=== PATIENT | male | born 1985 | race Caucasian/White ===

== ENCOUNTER 2017-09-03 11:19 | Emergency (ER) | payer MEDICAID ==
[~2017-09-03 11:19] MED LIST: ACHD5005 PO; CEPH-507 PO; DCS100C PO; DIVA500T PO; GBPN600T PO; HYDR-34 PO; HYOS0.1217 PO; MELO-195 PO; METH4TAB PO; ONDA-42 SL; OXYC-12 PO; OXYC-197 PO
--- OUTSIDE RECORDS SUMMARY | 2017-09-03 11:28 | XMS REPORT ---
Author Author CARI RYAN Organization [facility] Address [address] [place] [address] Care Team Providers Care Tourist Information Officer Name Role Phone CARI RYAN Unavailable PROBLEMS Type Condition ICD9-CM Code AGE09-KR Code Onset Dates Condition Status SNOMED Code Problem Follow-up examination following completed treatment with high-risk medications, not elsewhere classified V67.51 Active 556696758 Problem Acute midline low back pain with right-sided sciatica M54.41 Active 046262536 Problem Anxiety state, unspecified 300.00 Active 716696383 Problem Displacement of lumbar intervertebral disc without myelopathy 722.10 Active 11682174 Problem Abnormal involuntary movements 781.0 Active 215192321 Problem Depressive disorder, not elsewhere classified 311 Active 65536004 Problem Unspecified hereditary and idiopathic peripheral neuropathy 356.9 Active 191753835 ALLERGIES Substance Reaction Event Type Date Status Codeine Sulfate nausea and vomiting Drug Allergy Nov, Active Hydrocodone-acetaminophen 5-325 Mg Tablet nausea Non Drug Allergy Nov, Active ENCOUNTERS Encounter Location Date Diagnosis [facility] [id number] [place] [address] Jan, [facility] [id number] [place] [address] 55271- 8942 Jan, [facility] [id number] [place] [address] 6[address]16 -6776 Jan, Acute midline low back pain with right-sided sciatica M54.41 [facility] [address] [address] Dec, Viral gastroenteritis A08.4 [facility] [address] [place] [id number] [place] [address] Nov, Gastroenteritis and colitis, viral A08.4 [facility] [address] [address] Nov, Viral gastroenteritis A08.4 [facility] [id number] [place] [address]74 [address]23 Nov, Gastroenteritis and colitis, viral A08.4 [facility] [id number] [place] [address]7256 Aug, Viral gastroenteritis A08.4 [facility] [id number] [place] [address]72 [address]015 Mar, Other viral agents as the cause of diseases classified elsewhere B97.89 and Acute upper respiratory infection, unspecified J06.9 [facility] [id number] [place] [address]254 Dec, Body aches R52 ; Sore throat J02.9 and Gastroenteritis K52.9 [facility] [id number] [place] [address] 46583- 4544 May, [facility] [id number] [place] [address] 07787- 1050 May, [facility] [id number] [place] [address] 75191- 5569 Nov, [facility] [id number] [place] [address] 58201- 6785 Nov, [facility] [id number] [place] [address] 67876- 3949 Jul, [facility] [id number] [place] [address] 18944- 5318 Jul, [facility] [id number] [place] [address] 37105- 4220 Jul, [facility] [id number] [place] [address] 57471- 5199 Jul, [facility] [id number] [place] [address]80- 3020 June, [facility] [address] [id number] [place] [address] 7962 June, [facility] [place] [facility] [address] [id number] [place] [address]- 6994 June, [facility] [place] [facility] [address] [id number] [place] [address]- 8407 June, [facility] [place] [facility] [address] [id number] [place] [address]- 7548 May, [facility] [place] [facility] [address] [id number] [place] [address]- 7980 May, [facility] [place] [facility] [address] [id number] [place] [address]- 0730 Apr, [facility] [place] [facility] [address] [id number] [place] [address]- 7105 Apr, [facility] [place] [facility] [address] [id number] [place] [address]- 8626 Apr, [facility] [place] [facility] [address] [id number] [place] [address]- 5713 Mar, [facility] [place] [facility] [address] [id number] [place] [address]- 2153 Mar, [facility] [place] [facility] [address] [id number] [place] [address]- 5988 Feb, [facility] [place] [facility] [address] [id number] [place] [address]- 2086 Feb, [facility] [place] [facility] [address] [id number] [place] [address]- 9082 Dec, [facility] [place] [facility] [address] [id number] [place] [address]- 6327 Dec, [facility] [place] [facility] [address] [id number] [place] [address]- 1730 Dec, [facility] [place] [facility] [address] [id number] [place] [address]- 4617 Dec, [facility] [place] [facility] [address] [id number] [place] [address]- 9305 Dec, [facility] [place] [facility] [address] [id number] [place] [address]- 1626 Dec, [facility] [place] [facility] [address] [id number] [place] [address]- 6388 Dec, [facility] [place] [facility] [address] [id number] [place] [address]- 1471 Dec, [facility] [place] [facility] [address] [id number] [place] [address]- 3166 Nov, [facility] [place] [facility] [address] [id number] [place] [address]- 3591 Nov, [facility] [place] [facility] [address] [id number] [place] [address]- 9915 Nov, [facility] [place] [facility] [address] [id number] [place] [address]- 2040 Nov, [facility] [place] [facility] [address] [id number] [place] [address]- 0213 Mar, [facility] [place] [facility] [address] [id number] [place] [address]- 6142 Feb, [facility] [place] [facility] [address] [id number] [place] [address]- 7327 Feb, [facility] [place] [facility] [address] [id number] [place] [address]- 4692 Feb, [facility] [place] [facility] [address] [id number] [place] [address]- 1039 Feb, [facility] [place] [facility] [address] [id number] [place] [address]- 9360 Feb, [facility] [place] [facility] [address] [id number] [place] [address]- 4263 Feb, [facility] [place] [facility] [address] [id number] [place] [address]- 3764 Jan, [facility] [place] [facility] [address] [id number] [place] [address]- 7550 Jan, [facility] [place] [facility] [address] [facility] [id number] [place] [address]- 6700 Jan, [facility] [place] [facility] [address] [id number] [place] [address]- 5994 Jan, [facility] [place] [facility] [address] [id number] [place] [address]- 2583 Dec, [facility] [place] [facility] [address] [id number] [place] [address]- 9514 Dec, [facility] [place] [facility] [address] [id number] [place] [address]- 4204 Dec, [facility] [place] [facility] [address] [id number] [place] [address]- 1513 Dec, [facility] [place] [facility] [address] [id number] [place] [address]- 7032 Dec, [facility] [place] [facility] [address] [facility] [id number] [place] [address]- 9251 Dec, [facility] [place] [facility] [address] [id number], [place] [address]- 9350 Dec, [facility] [place] [facility] [address] [id number], [place] [address]- 5187 Dec, [facility] [place] [facility] [address] [id number] [place] [address]- 4981 Dec, [facility] [place] [facility] [address] [id number], [place] [address]- 6636 Dec, [facility] [place] [facility] [address] [facility] [id number] [place] [address]- 2516 Oct, [facility] [place] [facility] [address] [facility] [id number] [place] [address]- 1084 Nov, [facility] [address] [facility] [id number], [place] [address]- 1657 Nov, [facility] [address] [facility] [id number], [place] [address]- 8103 Nov, [facility] [address] [facility] [id number], [place] [address]- 3449 Mar, IMMUNIZATIONS No Known Immunizations SOCIAL HISTORY Never Assessed REASON FOR VISIT Diarrhea started Wednesday, seen on Wednesday and [facility] VITAL SIGNS Height 69 in 2016-11-18 Weight 269.4 lbs 2016-11-18 Temperature 98.3 degrees Fahrenheit 2016-11-18 Heart Rate 80 bpm 2016-11-18 Respiratory Rate 18 2016-11-18 BMI 39.78 kg/m2 2016-11-18 Blood pressure systolic 100 mmHg 2016-11-18 Blood pressure diastolic 70 mmHg 2016-11-18 MEDICATIONS Medication Instructions Dosage Frequency Start Date End Date Duration Status Zofran 4 MG Orally 3 times a day 1 tablet 8h Nov, Active RESULTS No Results PROCEDURES No Known procedures INSTRUCTIONS MEDICATIONS ADMINISTERED No Known Medications MEDICAL (GENERAL) HISTORY Type Description Date Medical History degenerative disc disease Medical History spondolysis Medical History history of herniated discs
--- OUTSIDE RECORDS SUMMARY | 2017-09-03 11:28 | XMS REPORT ---
Author Author OLSONMICHAEL Wilson Organization [facility] Address [address] [place] [address] Care Team Providers Care Portainer Operator Name Role Phone MICHAEL OLSON Unavailable PROBLEMS Type Condition ICD9-CM Code [id number] Code Onset Dates Condition Status SNOMED Code Problem Follow-up examination following completed treatment with high-risk medications, not elsewhere classified V67.51 Active 939317792 Problem Acute midline low back pain with right-sided sciatica M54.41 Active 289212952 Problem Anxiety state, unspecified 300.00 Active 419769676 Problem Displacement of lumbar intervertebral disc without myelopathy 722.10 Active 83977149 Problem Abnormal involuntary movements 781.0 Active 841647947 Problem Depressive disorder, not elsewhere classified 311 Active 57071226 Problem Unspecified hereditary and idiopathic peripheral neuropathy 356.9 Active 442082964 ALLERGIES Substance Reaction Event Type Date Status Codeine Sulfate nausea and vomiting Drug Allergy Jan, Active Hydrocodone-acetaminophen 5-325 Mg Tablet nausea Non Drug Allergy Jan, Active ENCOUNTERS Encounter Location Date Diagnosis [facility] [id number] [place] [address] 49290- 9598 Jan, [facility] [id number] [place] [address] 79972- 8032 Jan, [facility] [id number] [place] [address] 18038 -7266 Jan, Acute midline low back pain with right-sided sciatica M54.41 [facility] [address] [address] Dec, Viral gastroenteritis A08.4 [facility] [id number] [place] [address] 44753 -7771 Nov, Gastroenteritis and colitis, viral A08.4 [facility] [address] [address] Nov, Viral gastroenteritis A08.4 [facility] [address] [address] Nov, Gastroenteritis and colitis, viral A08.4 [facility] [address] [address] Aug, Viral gastroenteritis A08.4 [facility] [address] [address] Mar, Other viral agents as the cause of diseases classified elsewhere B97.89 and Acute upper respiratory infection, unspecified J06.9 [facility] [address] [address] Dec, Body aches R52 ; Sore throat J02.9 and Gastroenteritis K52.9 [facility] [id number] [address]- 4131 May, [facility] [id number] [place] [address] 05472- 6072 May, [facility] [id number] [place] [address] 79357- 5129 Nov, [facility] [address] [address]- 7416 Nov, [facility] [address] [address]- 1874 Jul, [facility] [address] [address]- 3374 Jul, [facility] [id number] [place] [address] 09956- 8178 Jul, [facility] [address] [address]- 9750 Jul, [facility] [id number] [place] [address] [place] [address]- 0294 June, [facility] [address] [id number] [place] [address]- 5383 June, [facility] [place] [facility] [address] [id number] [place] [address]- 7305 June, [facility] [place] [facility] [address] [id number] [place] [address]- 2742 June, [facility] [place] [facility] [address] [id number] [place] [address]- 4488 May, [facility] [place] [facility] [address] [id number] [place] [address]- 5983 May, [facility] [place] [facility] [address] [id number] [place] [address]- 5379 Apr, [facility] [address] [id number] [place] [address]- 6360 Apr, [facility] [place] [facility] [address] [id number] [place] [address]- 0244 Apr, [facility] [place] [facility] [address] [id number] [place] [address]- 4787 Mar, [facility] [place] [facility] [address] [id number] [place] [address]- 1689 Mar, [facility] [place] [facility] [address] [id number] [place] [address]- 9600 Feb, [facility] [place] [facility] [address] [id number] [place] [address]- 3622 Feb, [facility] [place] [facility] [address] [id number] [place] [address]- 8063 Dec, [facility] [place] [facility] [address] [id number] [place] [address]- 3526 Dec, [facility] [place] [facility] [address] [id number] [place] [address]- 1903 Dec, [facility] [place] [facility] [address] [id number] [place] [address]- 8003 Dec, [facility] [place] [facility] [address] [id number] [place] [address]- 3628 Dec, [facility] [place] [facility] [address] [id number] [place] [address]- 5815 Dec, [facility] [place] [facility] [address] [id number] [place] [address]- 9626 Dec, [facility] [place] [facility] [address] [id number] [place] [address]- 6580 Dec, [facility] [place] [facility] [address] [id number] [place] [address]- 0682 Nov, [facility] [place] [facility] [address] [id number] [place] [address]- 2648 Nov, [facility] [place] [facility] [address] [id number] [place] [address]- 4524 Nov, [facility] [place] [facility] [address] [id number] [place] [address]- 1854 Nov, [facility] [place] [facility] [address] [id number] [place] [address]- 4264 Mar, [facility] [place] [facility] [address] [id number] [place] [address]- 0960 Feb, [facility] [place] [facility] [address] [id number] [place] [address]- 1201 Feb, [facility] [place] [facility] [address] [id number] [place] [address]- 9386 Feb, [facility] [place] [facility] [address] [id number] [place] [address]- 7560 Feb, [facility] [place] [facility] [address] [id number] [place] [address]- 3781 Feb, [facility] [place] [facility] [address] [id number] [place] [address]- 2883 Feb, [facility] [place] [facility] [address] [id number] [place] [address]- 7556 Jan, [facility] [place] [facility] [address] [id number] [place] Jan, [facility] [place] [facility] [address] [id number] [place] [address]- 1556 Jan, [facility] [place] [facility] [address] [id number] [place] [address]- 1148 Jan, [facility] [place] [facility] [address] [id number] [place] [address]- 9944 Dec, [facility] [place] [facility] [address] [id number] [place] [address]- 1927 Dec, [facility] [place] [facility] [address] [id number] [place] [address]- 0542 Dec, [facility] [place] [facility] [address] [id number] [place] [address]- 0257 Dec, [facility] [place] [facility] [address] [id number] [place] [address]- 8124 Dec, [facility] [place] [facility] [address] [id number] [place] [address]- 4306 Dec, [facility] [place] [facility] [address] [id number] [place] [address]- 4824 Dec, [facility] [place] [facility] [address] [id number] [place] [address]- 7255 Dec, [facility] [place] [facility] [address] [id number] [place] [address]- 0245 Dec, [facility] [place] [facility] [address] [id number] [place] [address]- 9835 Dec, [facility] [place] [facility] [address] [id number] [place] [address]- 8475 Oct, [facility] [place] [facility] [address] [facility] [id number] [place] [address]- 3917 Nov, [facility] [address] [facility] [id number] [address]- 0132 Nov, [facility] [address] [facility] [id number] [address]- 7396 Nov, [facility] [address] [facility] [id number] [address]- 2700 Mar, IMMUNIZATIONS No Known Immunizations SOCIAL HISTORY Never Assessed REASON FOR VISIT lower back pain started a couple days ago JStrasserRN PLAN OF CARE Activity Details Follow Up prn Reason: VITAL SIGNS Height 69 in 2017-01-18 Weight 267.0 lbs 2017-01-18 Temperature 97.9 degrees Fahrenheit 2017-01-18 Heart Rate 96 bpm 2017-01-18 Respiratory Rate 22 2017-01-18 BMI 39.42 kg/m2 2017-01-18 Blood pressure systolic 130 mmHg 2017-01-18 Blood pressure diastolic 84 mmHg 2017-01-18 MEDICATIONS Medication Instructions Dosage Frequency Start Date End Date Duration Status Tylenol 325 MG Orally every 6 hrs 2 tablets as needed 6h Active Ibuprofen 800 MG Orally Three times a day 1 tablet with food or milk as needed 8h Jan, Feb, 30 days Active PredniSONE 10 mg Orally Once a day 6 tabs x 4 days, 5 tabs x 4 days, 4 tabs x 4 days, 3 tabs x 4 days, 2 tabs x 4 days, then 1 tab x 4 days. 24h Jan, Jan, 24 days Active Baclofen Not-Taking Zofran 4 MG Orally 3 times a day 1 tablet 8h Nov, Not-Taking Tizanidine HCl 4 MG Orally Three times a day 1 tablet as needed 8h Jan, Jan, 14 days Active Meloxicam Not-Taking Oxycodone-Acetaminophen 5-325 mg 1 Tablets by Oral route 3 times per day PRN Must keep appointment on 08-11-13 Jul, Not-Taking Gabapentin 300 mg 1 capsule by Oral route 3 times per day Dec, Not-Taking RESULTS No Results PROCEDURES No Known procedures INSTRUCTIONS MEDICATIONS ADMINISTERED No Known Medications MEDICAL (GENERAL) HISTORY Type Description Date Medical History degenerative disc disease Medical History spondolysis Medical History history of herniated discs
--- OUTSIDE RECORDS SUMMARY | 2017-09-03 11:28 | XMS REPORT ---
Author Author JYOTI ABRAMS Organization [facility] Address [address] [place] [address] Care Team Providers Care Soft Metals Hand Engraver Name Role Phone ABRAMSCASSYJYOTI Unavailable PROBLEMS Type Condition ICD9-CM Code RKN83-AZ Code Onset Dates Condition Status SNOMED Code Problem Follow-up examination following completed treatment with high-risk medications, not elsewhere classified V67.51 Active 934936751 Problem Acute midline low back pain with right-sided sciatica M54.41 Active 793018060 Problem Anxiety state, unspecified 300.00 Active 012682317 Problem Displacement of lumbar intervertebral disc without myelopathy 722.10 Active 34524469 Problem Abnormal involuntary movements 781.0 Active 964673589 Problem Depressive disorder, not elsewhere classified 311 Active 98108759 Problem Unspecified hereditary and idiopathic peripheral neuropathy 356.9 Active 596072751 ALLERGIES Substance Reaction Event Type Date Status Codeine Sulfate nausea and vomiting Drug Allergy Dec, Active Hydrocodone-acetaminophen 5-325 Mg Tablet nausea Non Drug Allergy Dec, Active ENCOUNTERS Encounter Location Date Diagnosis [facility] [id number] [place] [address] 100[address] Jan, [facility] [id number] [place] [address]6579[address] 3761 Jan, [facility] [id number] [place] [address] Jan, Acute midline low back pain with right-sided sciatica M54.41 [facility] [id number] [place] [address]3964 [address] Dec, Viral gastroenteritis A08.4 [facility] [id number] [place] [address]36 [address] Nov, Gastroenteritis and colitis, viral A08.4 [facility] [address] [address] Nov, Viral gastroenteritis A08.4 [facility] [id number] [place] [address] Nov, Gastroenteritis and colitis, viral A08.4 [facility] [address] [address] Aug, Viral gastroenteritis A08.4 [facility] [id number] [place] [address]10 [address] Mar, Other viral agents as the cause of diseases classified elsewhere B97.89 and Acute upper respiratory infection, unspecified J06.9 [facility] [id number] [address] Dec, Body aches R52 ; Sore throat J02.9 and Gastroenteritis K52.9 [facility] [id number] [place] [address] 33406- 6671 May, [facility] [id number] [place] [address] 91083- 2255 May, [facility] [id number] [place] [address] 09477- 4949 Nov, [facility] [address] [address] 98[address] Nov, [facility] [id number] [place] [address] 38546- 7631 Jul, [facility] [id number] [place] [address] 04417- 8946 Jul, [facility] [id number] [place] [address] 08133- 9152 Jul, [facility] [id number] [place] [address] 24902- 7209 Jul, [facility] [id number] [place] [address] June, [facility] [place] [facility] [address] [id number] [place] [address] 7671 June, [facility] [place] [facility] [address] [id number] [place] [address] 8949 June, [facility] [place] [facility] [address] [id number] [place] [address]- 2569 June, [facility] [place] [facility] [address] [id number] [place] [address] 4167 May, [facility] [place] [facility] [address] [id number] [place] [address]- 0476 May, [facility] [place] [facility] [address] [id number] [place] [address]- 8723 Apr, [facility] [place] [facility] [address] [id number] [place] [address]- 1750 Apr, [facility] [place] [facility] [address] [id number] [place] [address]- 6224 Apr, [facility] [place] [facility] [address] [id number] [place] [address]- 4509 Mar, [facility] [place] [facility] [address] [id number] [place] [address]- 3715 Mar, [facility] [place] [facility] [address] [id number] [place] [address] 3507 Feb, [facility] [place] [facility] [address] [id number] [place] [address] 1540 Feb, [facility] [place] [facility] [address] [id number] [place] [address]- 4078 Dec, [facility] [place] [facility] [address] [id number] [place] [address]- 0667 Dec, [facility] [place] [facility] [address] [id number] [place] [address]- 7106 Dec, [facility] [place] [facility] [address] [id number] [place] [address]- 9707 Dec, [facility] [place] [facility] [address] [id number] [place] [address]- 9864 Dec, [facility] [place] [facility] [address] [id number] [place] [address]- 1286 Dec, [facility] [place] [facility] [address] [id number] [place] [address]- 8565 Dec, [facility] [place] [facility] [address] [id number] [place] [address]- 8921 Dec, [facility] [place] [facility] [address] [id number] [place] [address]- 8377 Nov, [facility] [place] [facility] [address] [id number] [place] [address]- 8637 Nov, [facility] [address] [id number] [place] [address]- 6329 Nov, [facility] [place] [facility] [address] [id number] [place] [address]- 6645 Nov, [facility] [place] [facility] [address] [id number] [place] [address]- 7535 Mar, [facility] [place] [facility] [address] [id number] [place] [address]- 3240 Feb, [facility] [place] [facility] [address] [id number] [address] Feb, [facility] [place] [facility] [address] [id number] [place] [address]- 7762 Feb, [facility] [place] [facility] [address] [id number] [place] [address]- 2865 Feb, [facility] [place] [facility] [address] [id number] [address]- 5[address] Feb, [facility] [place] [facility] [address] [id number] [address]- 7037 Feb, [facility] [place] [facility] [address] [id number] [place] [address]- 8246 Jan, [facility] [place] [facility] [address] [id number] [place] [address]- 4867 Jan, [facility] [place] [facility] [address] [id number] [place] [address]- 9840 Jan, [facility] [place] [facility] [address] [id number] [place] [address]- 2783 Jan, [facility] [place] [facility] [address] [id number] [place] [address]- 4881 Dec, [facility] [place] [facility] [address] [id number] [place] [address]- 9971 Dec, [facility] [place] [facility] [address] [id number] [place] [address]- 7468 Dec, [facility] [place] [facility] [address] [id number] [place] [address]- 8235 Dec, [facility] [place] [facility] [address] [id number] [place] [address]- 4766 Dec, [facility] [place] [facility] [address] [id number] [place] [address]- 8358 Dec, [facility] [place] [facility] [address] [id number] [place] [address]- 2733 Dec, [facility] [place] [facility] [address] [id number] [place] [address]- 5819 Dec, [facility] [place] [facility] [address] [id number] [address]- 0498 Dec, [facility] [place] [facility] [address] [id number] [place] [address]- 7423 Dec, [facility] [place] [facility] [address] [id number] [place] [address]- 7479 Oct, [facility] [place] [facility] [address] [id number] [place] [address] [address] Nov, [facility] [address] [id number] [place] [address] 8320 Nov, [facility] [address] [id number] [address] 6720 Nov, [facility] [address] [id number] [place] [address] Mar, IMMUNIZATIONS No Known Immunizations SOCIAL HISTORY Never Assessed REASON FOR VISIT N/D...denies any vomiting. the diarrhea started at 2230 last noc. [email or web address] PLAN OF CARE Activity Details Follow Up prn Reason: VITAL SIGNS Height 69 in 2016-12-21 Weight 267.6 lbs 2016-12-21 Temperature 98.4 degrees Fahrenheit 2016-12-21 Heart Rate 70 bpm 2016-12-21 Respiratory Rate 20 2016-12-21 BMI 39.51 kg/m2 2016-12-21 Blood pressure systolic 120 mmHg 2016-12-21 Blood pressure diastolic 74 mmHg 2016-12-21 MEDICATIONS Unknown Medications RESULTS No Results PROCEDURES No Known procedures INSTRUCTIONS MEDICATIONS ADMINISTERED No Known Medications MEDICAL (GENERAL) HISTORY Type Description Date Medical History degenerative disc disease Medical History spondolysis Medical History history of herniated discs
--- OUTSIDE RECORDS SUMMARY | 2017-09-03 11:28 | XMS REPORT ---
Author Author OLSONMICHAEL Wilson Organization [facility] Address [address] [place] [address] Care Team Providers Care Electrophysiology Technician Name Role Phone MICHAEL OLSON Unavailable PROBLEMS Type Condition ICD9-CM Code QDV01-XX Code Onset Dates Condition Status SNOMED Code Problem Anxiety state, unspecified 300.00 Active 152036194 Problem Depressive disorder, not elsewhere classified 311 Active 13161221 Problem Abnormal involuntary movements 781.0 Active 376005805 Problem Follow-up examination following completed treatment with high-risk medications, not elsewhere classified V67.51 Active 858915000 Problem Unspecified hereditary and idiopathic peripheral neuropathy 356.9 Active 629679083 Problem Displacement of lumbar intervertebral disc without myelopathy 722.10 Active 69883788 ALLERGIES Substance Reaction Event Type Date Status Wellbutrin Sr 150 Mg Tablet Extended Release Unknown Non Drug Allergy Dec Active Hydrocodone-acetaminophen 5-325 Mg Tablet Unknown Non Drug Allergy Dec, Active SOCIAL HISTORY Never Assessed PLAN OF CARE Activity Details Follow Up prn Reason: VITAL SIGNS Height 71 in 2015-12-29 Weight 243.2 lbs 2015-12-29 Temperature 100.6 degrees Fahrenheit 2015-12-29 Heart Rate 108 bpm 2015-12-29 Respiratory Rate 20 2015-12-29 BMI 33.92 kg/m2 2015-12-29 Blood pressure systolic 122 mmHg 2015-12-29 Blood pressure diastolic 76 mmHg 2015-12-29 MEDICATIONS Medication Instructions Dosage Frequency Start Date End Date Duration Status Ciprofloxacin HCl 500 MG Orally Twice a day 1 tablet 12h Dec, Dec, 05 days Active Metronidazole 500 MG Orally Twice a day 1 tablet 12h Dec, Dec, 05 days Active RESULTS Name Result Date Reference Range INFLUENZA A & B (IN HOUSE) 2015-12-29 INFLUENZA A NEG INFLUENZA B NEG Control + Lot # [id number] Exp date 06/12/2017 STREP A (IN HOUSE) 2015-12-29 STREP A NEG Control + Lot # [id number] Exp date 08/28/2017 PROCEDURES Procedure Date Ordered Result Body Site INFLUENZA ASSAY W/OPTIC Dec 29, 2015 STREP A ASSAY W/OPTIC Dec 29, 2015 IMMUNIZATIONS No Known Immunizations
--- OUTSIDE RECORDS SUMMARY | 2017-09-03 11:28 | XMS REPORT ---
Author Author OLSONMICHAEL Wilson Organization [facility] Address [address] [place] [address] Care Team Providers Care Boiler Attendant Name Role Phone MICHAEL OLSON Unavailable PROBLEMS Type Condition ICD9-CM Code CTG51-MS Code Onset Dates Condition Status SNOMED Code Problem Follow-up examination following completed treatment with high-risk medications, not elsewhere classified V67.51 Active 074903822 Problem Acute midline low back pain with right-sided sciatica M54.41 Active 517375081 Problem Anxiety state, unspecified 300.00 Active 615734987 Problem Displacement of lumbar intervertebral disc without myelopathy 722.10 Active 04587028 Problem Abnormal involuntary movements 781.0 Active 594545425 Problem Depressive disorder, not elsewhere classified 311 Active 01632168 Problem Unspecified hereditary and idiopathic peripheral neuropathy 356.9 Active 333067307 ALLERGIES No Information ENCOUNTERS Encounter Location Date Diagnosis [facility] [id number] [place] [address]29[address]145 Jan, [facility] [id number] [place] [address] 30392- 1412 Jan, [facility] [id number] [place] [address] 03274 -9550 Jan, Acute midline low back pain with right-sided sciatica M54.41 [facility] [id number] [place] [address] 47818 -7542 Dec, Viral gastroenteritis A08.4 [facility] [id number] [place] [address] 10240 -6972 Nov, Gastroenteritis and colitis, viral A08.4 [facility] [id number] [place] [address] 19571 -6320 Nov, Viral gastroenteritis A08.4 [facility] [address] [address] Nov, Gastroenteritis and colitis, viral A08.4 [facility] [address] [place] [address] 63575 -6721 Aug, Viral gastroenteritis A08.4 [facility] [address] [place] [address] 20878 -9379 Mar, Other viral agents as the cause of diseases classified elsewhere B97.89 and Acute upper respiratory infection, unspecified J06.9 [facility] [id number] [place] [address] 20422 -5981 Dec, Body aches R52 ; Sore throat J02.[address] [facility] [id number] [place] [address] 78096- 2906 May, [facility] [id number] [place] [address]2971- 2835 May, [facility] [id number] [place] [address] 64868- 4521 Nov, [facility] [id number] [place] [address] 05218- 3258 Nov, [facility] [address] [address] 7680 Jul, [facility] [id number] [place] [address] 60888- 5905 Jul, [facility] [address] [place] [address] 19491- 4697 Jul, [facility] [id number] [place] [address] 60253- 5918 Jul, [facility] [address] [place] [address] 51663- 4675 June, [facility] [id number] [place] [address] 55073- 7443 June, [facility] [address] [id number] [place] [address]- 2475 June, [facility] [place] [facility] [address] [id number] [place] [address]- 2064 June, [facility] [place] [facility] [address] [id number] [place] [address]- 6098 May, [facility] [place] [facility] [address] [id number] [place] [address]- 1920 May, [facility] [place] [facility] [address] [id number] [place] [address]- 2932 Apr, [facility] [place] [facility] [address] [id number] [place] [address]- 2441 Apr, [facility] [address] [id number] [place] [address]- 7843 Apr, [facility] [place] [facility] [address] [id number] [place] [address]- 6627 Mar, [facility] [place] [facility] [address] [id number] [place] [address]- 5130 Mar, [facility] [place] [facility] [address] [id number] [place] [address]- 7133 Feb, [facility] [place] [facility] [address] [id number] [place] [address]- 6448 Feb, [facility] [place] [facility] [address] [id number], [place] [address]- 1792 Dec, [facility] [place] [facility] [address] [id number] [place] [address]- 6753 Dec, [facility] [place] [facility] [address] [id number] [place] [address]- 4036 Dec, [facility] [place] [facility] [address] [id number] [place] [address]- 5200 Dec, [facility] [place] [facility] [address] [id number] [place] [address]- 2172 Dec, [facility] [place] [facility] [address] [id number] [place] [address]- 7671 Dec, [facility] [place] [facility] [address] [id number] [place] [address]- 8650 Dec, [facility] [place] [facility] [address] [id number] [place] [address]- 1798 Dec, [facility] [place] [facility] [address] [id number] [place] [address]- 4407 Nov, [facility] [place] [facility] [address] [id number] [place] [address]- 8663 Nov, [facility] [place] [facility] [address] [id number] [place] [address]- 9622 Nov, [facility] [place] [facility] [address] [id number] [place] [address]- 6373 Nov, [facility] [place] [facility] [address] [id number] [place] [address]- 9356 Mar, [facility] [place] [facility] [address] [id number] [place] [address]- 2139 Feb, [facility] [place] [facility] [address] [id number] [place] [address]- 4750 Feb, [facility] [place] [facility] [address] [id number] [place] [address]- 1840 Feb, [facility] [place] [facility] [address] [id number] [place] [address]- 9442 Feb, [facility] [place] [facility] [address] [id number] [place] [address]- 6410 Feb, [facility] [place] [facility] [address] [id number] [place] [address]- 1084 Feb, [facility] [place] [facility] [address] [id number] [place] [address]- 9425 Jan, [facility] [place] [facility] [address] [id number] [place] [address]- 7306 Jan, [facility] [place] [facility] [address] [id number] [place] [address]- 5976 Jan, [facility] [place] [facility] [address] [facility] [id number] [place] [address] Jan, [facility] [place] [facility] [address] [id number] [place] [address]- 3423 Dec, [facility] [place] [facility] [address] [id number] [place] [address]- 5018 Dec, [facility] [place] [facility] [address] [id number] [place] [address]- 3779 Dec, [facility] [place] [facility] [address] [id number] [place] [address]- 4834 Dec, [facility] [place] [facility] [address] [id number], [place] [address]- 3894 Dec, [facility] [place] [facility] [address] [id number], [place] [address]- 3162 Dec, [facility] [place] [facility] [address] [facility] [id number] [place] [address]- 2809 Dec, [facility] [place] [facility] [address] [id number], [place] [address]- 7984 Dec, [facility] [place] [facility] [address] [id number], [place] [address]- 4122 Dec, [facility] [place] [facility] [address] [id number], [place] [address]- 3208 Dec, [facility] [place] [facility] [address] [facility] [id number], [place] [address]- 9127 Oct, [facility] [place] [facility] [address] [facility] [id number], [place] [address]- 4774 Nov, [facility] [place] [facility] [address] [facility] [id number] [place] [address]- [address]108 Nov, [facility] [address] [facility] [id number] [place] [address]- 9679 Nov, [facility] [address] [facility] [id number] [place] [address] [address] Mar, IMMUNIZATIONS No Known Immunizations SOCIAL HISTORY Never Assessed REASON FOR VISIT Refill request PLAN OF CARE VITAL SIGNS MEDICATIONS Unknown Medications RESULTS No Results PROCEDURES No Known procedures INSTRUCTIONS MEDICATIONS ADMINISTERED No Known Medications MEDICAL (GENERAL) HISTORY Type Description Date Medical History degenerative disc disease Medical History spondolysis Medical History history of herniated discs
--- OUTSIDE RECORDS SUMMARY | 2017-09-03 11:28 | XMS REPORT ---
Author Author AMADO BOWEN Organization [facility] Address [address] [place] [address] Care Team Providers Care Print Line Operator Name Role Phone AMADO BOWEN Unavailable PROBLEMS Type Condition ICD9-CM Code LDK95-AC Code Onset Dates Condition Status SNOMED Code Problem Anxiety state, unspecified 300.00 Active 322441086 Problem Depressive disorder, not elsewhere classified 311 Active 38196809 Problem Abnormal involuntary movements 781.0 Active 540129367 Problem Follow-up examination following completed treatment with high-risk medications, not elsewhere classified V67.51 Active 947688363 Problem Unspecified hereditary and idiopathic peripheral neuropathy 356.9 Active 766588838 Problem Displacement of lumbar intervertebral disc without myelopathy 722.10 Active 57507299 ALLERGIES Substance Reaction Event Type Date Status Codeine Sulfate nausea and vomiting Drug Allergy Mar, Active Hydrocodone-acetaminophen 5-325 Mg Tablet nausea Non Drug Allergy Mar, Active SOCIAL HISTORY Never Assessed PLAN OF CARE Activity Details Follow Up prn Reason: VITAL SIGNS Height 69 in 2016-04-10 Weight 251.0 lbs 2016-04-10 Temperature 98.3 degrees Fahrenheit 2016-04-10 Heart Rate 94 bpm 2016-04-10 Respiratory Rate 20 2016-04-10 BMI 37.06 kg/m2 2016-04-10 Blood pressure systolic 126 mmHg 2016-04-10 Blood pressure diastolic 76 mmHg 2016-04-10 MEDICATIONS Medication Instructions Dosage Frequency Start Date End Date Duration Status Baclofen Active Meloxicam Active RESULTS No Results PROCEDURES No Known procedures IMMUNIZATIONS No Known Immunizations
--- OUTSIDE RECORDS SUMMARY | 2017-09-03 11:29 | XMS REPORT ---
Author Author JYOTI ABRAMS Organization [facility] Address [address] [place] [address] Care Team Providers Care Ragman Name Role Phone ABRAMSCASSYJYOTI Unavailable PROBLEMS Type Condition ICD9-CM Code RWD99-AL Code Onset Dates Condition Status SNOMED Code Problem Follow-up examination following completed treatment with high-risk medications, not elsewhere classified V67.51 Active 161344008 Problem Acute midline low back pain with right-sided sciatica M54.41 Active 136141105 Problem Anxiety state, unspecified 300.00 Active 828608146 Problem Displacement of lumbar intervertebral disc without myelopathy 722.10 Active 88253789 Problem Abnormal involuntary movements 781.0 Active 695566786 Problem Depressive disorder, not elsewhere classified 311 Active 49090101 Problem Unspecified hereditary and idiopathic peripheral neuropathy 356.9 Active 737719303 ALLERGIES Substance Reaction Event Type Date Status Codeine Sulfate nausea and vomiting Drug Allergy Aug, Active Hydrocodone-acetaminophen 5-325 Mg Tablet nausea Non Drug Allergy Aug, Active ENCOUNTERS Encounter Location Date Diagnosis [facility] [id number] [place] [address]99[address] 2695 Jan, [facility] [id number] [place] [address] 32436[address] 3259 Jan, [facility] [id number] [place] [address]690 [address]9819 Jan, Acute midline low back pain with right-sided sciatica M54.41 [facility] [id number] [place] [address] 74238 [address] Dec, Viral gastroenteritis A08.4 [facility] [id number] [place] [address] 67867 [address]16 Nov, Gastroenteritis and colitis, viral A08.4 [facility] [address] [address] Nov, Viral gastroenteritis A08.4 [facility] [address] [place] [address] 96266 [address] Nov, Gastroenteritis and colitis, viral A08.4 [facility] [address] [address] Aug, Viral gastroenteritis A08.4 [facility] [id number] [place] [address]73 [address]6 Mar, Other viral agents as the cause of diseases classified elsewhere B97.89 and Acute upper respiratory infection, unspecified J06.9 [facility] [id number] [address] Dec, Body aches R52 ; Sore throat J02.9 and Gastroenteritis K52.9 [facility] [id number] [place] [address] 45678- 5849 May, [facility] [id number] [place] [address] 51552- 0620 May, [facility] [id number] [place] [address] 61303- 6411 Nov, [facility] [address] [address] Nov, [facility] [id number] [place] [address] 53406- 4613 Jul, [facility] [id number] [place] [address] 40449- 5510 Jul, [facility] [id number] [place] [address] 64356- 4106 Jul, [facility] [address] [place] [address] 75226- 3136 Jul, [facility] [id number] [place] [address] June, [facility] [place] [facility] [address] [id number] [place] [address] 10[address] June, [facility] [place] [facility] [address] [id number] [place] [address] 8467 June, [facility] [place] [facility] [address] [id number] [place] [address] 8349 June, [facility] [place] [facility] [address] [id number] [place] [address] 0746 May, [facility] [place] [facility] [address] [id number] [place] [address] 3351 May, [facility] [place] [facility] [address] [id number] [place] [address] 7660 Apr, [facility] [place] [facility] [address] [id number] [place] [address] 8877 Apr, [facility] [place] [facility] [address] [id number] [place] [address] 1428 Apr, [facility] [place] [facility] [address] [id number] [place] [address] 8442 Mar, [facility] [place] [facility] [address] [id number] [place] [address] 9269 Mar, [facility] [place] [facility] [address] [id number] [place] [address] 1892 Feb, [facility] [place] [facility] [address] [id number] [place] [address] 2712 Feb, [facility] [place] [facility] [address] [id number] [place] [address] 1665 Dec, [facility] [place] [facility] [address] [id number] [place] [address] 8848 Dec, [facility] [place] [facility] [address] [id number] [place] [address]- 6771 Dec, [facility] [place] [facility] [address] [id number] [place] [address] 5178 Dec, [facility] [place] [facility] [address] [id number] [place] [address]- 5259 Dec, [facility] [place] [facility] [address] [id number] [place] [address]- 2839 Dec, [facility] [place] [facility] [address] [id number] [place] [address]- 5206 Dec, [facility] [place] [facility] [address] [id number] [place] [address]- 3557 Dec, [facility] [place] [facility] [address] [id number] [place] [address]- 1684 Nov, [facility] [place] [facility] [address] [id number] [place] [address]- 5397 Nov, [facility] [address] [id number] [place] [address]- 4894 Nov, [facility] [place] [facility] [address] [id number] [place] [address]- 4840 Nov, [facility] [place] [facility] [address] [id number] [place] [address]- 6378 Mar, [facility] [place] [facility] [address] [id number] [place] [address]- 0352 Feb, [facility] [place] [facility] [address] [id number], [place] [address] 135[address] Feb, [facility] [place] [facility] [address] [id number] [place] [address]- 0875 Feb, [facility] [place] [facility] [address] [id number] [place] [address]- 9198 Feb, [facility] [place] [facility] [address] [id number], [place] [address] 8050 Feb, [facility] [place] [facility] [address] [id number], [place] [address] 5989 Feb, [facility] [place] [facility] [address] [id number] [place] [address]- 4443 Jan, [facility] [place] [facility] [address] [id number] [place] [address]- 3475 Jan, [facility] [place] [facility] [address] [facility] [id number] [place] [address]- 2378 Jan, [facility] [place] [facility] [address] [id number] [place] [address]- 5837 Jan, [facility] [place] [facility] [address] [id number] [place] [address]- 4275 Dec, [facility] [place] [facility] [address] [id number] [place] [address]- 9410 Dec, [facility] [place] [facility] [address] [id number] [place] [address]- 8602 Dec, [facility] [place] [facility] [address] [id number] [place] [address]- 8454 Dec, [facility] [place] [facility] [address] [id number] [place] [address]- 1449 Dec, [facility] [place] [facility] [address] [facility] [id number] [place] [address]- 6339 Dec, [facility] [place] [facility] [address] [id number], [place] [address]- 8207 Dec, [facility] [place] [facility] [address] [id number], [place] [address]- 3240 Dec, [facility] [place] [facility] [address] [id number], [place] [address]- 5727 Dec, [facility] [place] [facility] [address] [id number] [place] [address]- 4473 Dec, [facility] [place] [facility] [address] [facility] [id number] [place] [address]- 7741 Oct, [facility] [place] [facility] [address] [facility] [id number] [place] [address]- 6280 10 Nov, 2010 [facility] [address] [facility] [id number], [place] [address] 7[address] Nov, [facility] [address] [facility] [id number], [place] [address] 2802 Nov, [facility] [address] [facility] [id number], [place] [address] 9025 Mar, IMMUNIZATIONS No Known Immunizations SOCIAL HISTORY Never Assessed REASON FOR VISIT Diarrhea JStrasserRN PLAN OF CARE Activity Details Follow Up prn Reason: VITAL SIGNS Height 69 in 2016-09-14 Weight 266.0 lbs 2016-09-14 Temperature 98.2 degrees Fahrenheit 2016-09-14 Heart Rate 80 bpm 2016-09-14 Respiratory Rate 22 2016-09-14 BMI 39.28 kg/m2 2016-09-14 Blood pressure systolic 140 mmHg 2016-09-14 Blood pressure diastolic 78 mmHg 2016-09-14 MEDICATIONS Unknown Medications RESULTS No Results PROCEDURES No Known procedures INSTRUCTIONS MEDICATIONS ADMINISTERED No Known Medications MEDICAL (GENERAL) HISTORY Type Description Date Medical History degenerative disc disease Medical History spondolysis Medical History history of herniated discs
--- OUTSIDE RECORDS SUMMARY | 2017-09-03 11:29 | XMS REPORT ---
Author Author OLSONMICHAEL Wilson Organization [facility] Address [address] [place] [address] Care Team Providers Care Inoculator Name Role Phone MICHAEL OLSON Unavailable PROBLEMS Type Condition ICD9-CM Code AIJ21-LH Code Onset Dates Condition Status SNOMED Code Problem Follow-up examination following completed treatment with high-risk medications, not elsewhere classified V67.51 Active 739050217 Problem Acute midline low back pain with right-sided sciatica M54.41 Active 949094394 Problem Anxiety state, unspecified 300.00 Active 435431367 Problem Displacement of lumbar intervertebral disc without myelopathy 722.10 Active 76927797 Problem Abnormal involuntary movements 781.0 Active 602188457 Problem Depressive disorder, not elsewhere classified 311 Active 20708668 Problem Unspecified hereditary and idiopathic peripheral neuropathy 356.9 Active 026719717 ALLERGIES No Information ENCOUNTERS Encounter Location Date Diagnosis [facility] [id number] [place] [address] 37011- 3491 Jan, [facility] [id number] [place] [address] 93515- 1926 Jan, [facility] [id number] [place] [address] 36365 -3264 Jan, Acute midline low back pain with right-sided sciatica M54.41 [facility] [id number] [place] [address] 30806 -0470 Dec, Viral gastroenteritis A08.4 [facility] [id number] [place] [address] 63546 -8310 Nov, Gastroenteritis and colitis, viral A08.4 [facility] [id number] [place] [address] 16936 -0479 Nov, Viral gastroenteritis A08.4 [facility] [address] [address] Nov, Gastroenteritis and colitis, viral A08.4 [facility] [id number] [place] [address] 77915 -1966 Aug, Viral gastroenteritis A08.4 [facility] [address] [place] [address] 63310 -6587 Mar, Other viral agents as the cause of diseases classified elsewhere B97.89 and Acute upper respiratory infection, unspecified J06.9 [facility] [id number] [place] [address] 67503 -3657 Dec, Body aches R52 ; Sore throat J02.9 and Gastroenteritis K52.9 [facility] [id number] [place] [address] 91969- 6768 May, [facility] [id number] [place] [address] 16974- 1708 May, [facility] [id number] [place] [address] 81992- 1516 Nov, [facility] [id number] [place] [address] 52718- 8461 Nov, [facility] [address] [address]- 7127 Jul, [facility] [id number] [place] [address] 19720- 3550 Jul, [facility] [id number] [place] [address] 48960- 7436 Jul, [facility] [id number] [place] [address] 06297- 1474 Jul, [facility] [id number] [place] [address] 57501- 9684 June, [facility] [id number] [place] [address] 63752- 8304 June, [facility] [address] [id number] [place] [address]- 0708 June, [facility] [place] [facility] [address] [id number] [place] [address]- 9063 June, [facility] [place] [facility] [address] [id number] [place] [address]- 6572 May, [facility] [place] [facility] [address] [id number] [place] [address]- 3150 May, [facility] [place] [facility] [address] [id number] [place] [address]- 0330 Apr, [facility] [place] [facility] [address] [id number] [place] [address]- 9309 Apr, [facility] [address] [id number] [place] [address]- 3690 Apr, [facility] [place] [facility] [address] [id number] [place] [address]- 3364 Mar, [facility] [place] [facility] [address] [id number] [place] [address]- 9115 Mar, [facility] [place] [facility] [address] [id number] [place] [address]- 4639 Feb, [facility] [place] [facility] [address] [id number] [place] [address]- 5628 Feb, [facility] [place] [facility] [address] [id number] [address]- 8269 Dec, [facility] [place] [facility] [address] [id number] [place] [address]- 9843 Dec, [facility] [place] [facility] [address] [id number] [place] [address]- 7528 Dec, [facility] [place] [facility] [address] [id number] [place] [address]- 4926 Dec, [facility] [place] [facility] [address] [id number] [place] [address]- 1051 Dec, [facility] [place] [facility] [address] [id number] [place] [address]- 8479 Dec, [facility] [place] [facility] [address] [id number] [place] [address]- 2219 Dec, [facility] [place] [facility] [address] [id number] [place] [address]- 1689 Dec, [facility] [place] [facility] [address] [id number] [place] [address]- 6593 Nov, [facility] [place] [facility] [address] [id number] [place] [address]- 8993 Nov, [facility] [place] [facility] [address] [id number] [place] [address]- 2532 Nov, [facility] [place] [facility] [address] [id number] [place] [address]- 4461 Nov, [facility] [place] [facility] [address] [id number] [place] [address]- 9445 Mar, [facility] [place] [facility] [address] [id number] [place] [address]- 3383 Feb, [facility] [place] [facility] [address] [id number] [place] [address]- 4012 Feb, [facility] [place] [facility] [address] [id number] [place] [address]- 7583 Feb, [facility] [place] [facility] [address] [id number] [place] [address]- 2005 Feb, [facility] [place] [facility] [address] [id number] [place] [address]- 1675 Feb, [facility] [place] [facility] [address] [id number] [place] [address]- 2100 Feb, [facility] [place] [facility] [address] [id number] [place] [address]- 3246 Jan, [facility] [place] [facility] [address] [id number] [place] [address]- 6599 Jan, [facility] [place] [facility] [address] [id number] [place] [address]- 8236 Jan, [facility] [place] [facility] [address] [facility] [id number] [place] [address]46 Jan, [facility] [place] [facility] [address] [id number] [place] [address]- 3566 Dec, [facility] [place] [facility] [address] [id number] [place] [address]- 2643 Dec, [facility] [place] [facility] [address] [id number] [place] [address]- 6630 Dec, [facility] [place] [facility] [address] [id number] [place] [address]- 5713 Dec, [facility] [place] [facility] [address] [id number] [address]- 2077 Dec, [facility] [place] [facility] [address] [id number] [place] [address]- 1854 Dec, [facility] [place] [facility] [address] [facility] [id number] [place] [address]- 0486 Dec, [facility] [place] [facility] [address] [id number] [place] [address]- 2743 Dec, [facility] [place] [facility] [address] [id number] [place] [address]- 3933 Dec, [facility] [place] [facility] [address] [id number] [place] [address]- 8102 Dec, [facility] [place] [facility] [address] [facility] [id number] [place] [address]- 6350 Oct, [facility] [place] [facility] [address] [facility] [id number] [place] [address]- 6474 Nov, [facility] [place] [facility] [address] [facility] [id number] [place] [address]- 6656 10 Nov, 2010 [facility] [address] [facility] [id number] [place] [address]- 6139 Nov, [facility] [address] [facility] [id number] [place] [address] [address] Mar, IMMUNIZATIONS No Known Immunizations SOCIAL HISTORY Never Assessed REASON FOR VISIT Tizanidine note PLAN OF CARE VITAL SIGNS MEDICATIONS Unknown Medications RESULTS No Results PROCEDURES No Known procedures INSTRUCTIONS MEDICATIONS ADMINISTERED No Known Medications MEDICAL (GENERAL) HISTORY Type Description Date Medical History degenerative disc disease Medical History spondolysis Medical History history of herniated discs
--- OUTSIDE RECORDS SUMMARY | 2017-09-03 11:29 | XMS REPORT ---
Author Author AMADO Salguero [facility] Address [address] [place] [address] Care Team Providers Care Financial Services Agent Name Role Phone shabanaKamariMALICK AMADO Unavailable PROBLEMS Type Condition ICD9-CM Code [id number] Code Onset Dates Condition Status SNOMED Code Problem Follow-up examination following completed treatment with high-risk medications, not elsewhere classified V67.51 Active 942202368 Problem Acute midline low back pain with right-sided sciatica M54.41 Active 357461842 Problem Anxiety state, unspecified 300.00 Active 604255119 Problem Displacement of lumbar intervertebral disc without myelopathy 722.10 Active 62148594 Problem Abnormal involuntary movements 781.0 Active 049028290 Problem Depressive disorder, not elsewhere classified 311 Active 89958314 Problem Unspecified hereditary and idiopathic peripheral neuropathy 356.9 Active [id number] ALLERGIES Substance Reaction Event Type Date Status Codeine Sulfate nausea and vomiting Drug Allergy Nov, Active Hydrocodone-acetaminophen 5-325 Mg Tablet nausea Non Drug Allergy Nov, Active ENCOUNTERS Encounter Location Date Diagnosis [facility] [id number] [place] [address] Jan, [facility] [id number] [place] [address] Jan, [facility] [id number] [place] [address] Jan, Acute midline low back pain with right-sided sciatica M54.41 [facility] [id number] [place] [address] Dec, Viral gastroenteritis A08.4 [facility] [id number] [place] [address] Nov, Gastroenteritis and colitis, viral A08.4 [facility] [id number], [place] [address] Nov, Viral gastroenteritis A08.4 [facility] [id number], [place] [address] Nov, Gastroenteritis and colitis, viral A08.4 [facility] [id number] [place] [address] Aug, Viral gastroenteritis A08.4 [facility] [id number], [place] [address] Mar, Other viral agents as the cause of diseases classified elsewhere B97.89 and Acute upper respiratory infection, unspecified J06.9 [facility] [id number], [place] [address] Dec, Body aches R52 ; Sore throat J02.9 and Gastroenteritis K52.9 [facility] [id number], [place] [address] May, [facility] [id number] [place] [address] May, [facility] [id number] [address] Nov, [facility] [id number], [place] [address] Nov, [facility] [id number], [place] [address] Jul, [facility] [id number], [place] [address] Jul, [facility] [id number] [place] [address] Jul, [facility] [id number], [place] [address] Jul, [facility] [id number] [place] [address] June, [facility] [address] [id number] [place] [address] June, [facility] [place] [facility] [address] [id number] [place] [address] June, [facility] [address] [id number] [place] [address] June, [facility] [place] [facility] [address] [id number] [place] [address] May, [facility] [address] [id number] [place] [address] May, [facility] [address] [id number] [place] [address] Apr, [facility] [address] [id number] [place] [address] Apr, [facility] [address] [id number] [place] [address] 28[address] Apr, [facility] [address] [id number] [place] [address] Mar, [facility] [address] [id number] [place] [address] Mar, [facility] [address] [id number] [place] [address] Feb, [facility] [place] [facility] [address] [id number] [place] [address] Feb, [facility] [place] [facility] [address] [id number] [place] Dec, [facility] [place] [facility] [address] [id number] [place] [address] Dec, [facility] [place] [facility] [address] [id number] [place] [address] 4[address] Dec, [facility] [place] [facility] [address] [id number] [place] [address]- [address] Dec, [facility] [place] [facility] [address] [id number] [place] [address] 49[address] Dec, [facility] [place] [facility] [address] [id number] [place] [address] Dec, [facility] [place] [facility] [address] [id number] [place] [address] 80[address] Dec, [facility] [place] [facility] [address] [id number] [place] [address] 6[address] Dec, [facility] [place] [facility] [address] [id number] [place] [address] 69[address] Nov, [facility] [place] [facility] [address] [id number] [place] [address] 8[address] Nov, [facility] [place] [facility] [address] [id number], [place] [address] Nov, [facility] [place] [facility] [address] [id number] [place] [address] Nov, [facility] [place] [facility] [address] [id number], [place] [address] Mar, [facility] [place] [facility] [address] [id number], [place] [address] Feb, [facility] [place] [facility] [address] [id number], [place] [address] Feb, [facility] [place] [facility] [address] [id number] [place] [address] 75[address] Feb, [facility] [place] [facility] [address] [id number], [place] [address] Feb, [facility] [place] [facility] [address] [id number], [place] [address] Feb, [facility] [place] [facility] [address] [id number] [place] [address]- 137[address] Feb, [facility] [place] [facility] [address] [id number] [place] [address] 46[address] Jan, [facility] [place] [facility] [address] [id number] [place] [address]- 9[address] Jan, [facility] [place] [facility] [address] [id number] [place] [address]- 9[address] Jan, [facility] [place] [facility] [address] [id number] [place] [address]- 0[address] Jan, [facility] [place] [facility] [address] [id number] [place] [address]- 5[address] Dec, [facility] [place] [facility] [address] [id number] [place] [address]- 99[address] Dec, [facility] [place] [facility] [address] [id number] [place] [address]- 9449 Dec, [facility] [place] [facility] [address] [id number] [place] [address]- 67[address] Dec, [facility] [place] [facility] [address] [id number] [place] [address]- 8073 Dec, [facility] [place] [facility] [address] [facility] [id number] [place] [address]- [address] Dec, [facility] [place] [facility] [address] [id number] [place] [address]- 1377 Dec, [facility] [place] [facility] [address] [id number] [place] [address]- 7213 Dec, [facility] [place] [facility] [address] [id number] [place] [address]- 25[address] Dec, [facility] [place] [facility] [address] [id number] [place] [address]- 82[address] Dec, [facility] [place] [facility] [address] [id number] [place] [address]- [address] 17 Oct, 2011 [facility] [address] [facility] [id number] [place] [address] Nov, [facility] [address] [facility] [id number], [place] [address] Nov, [facility] [address] [facility] [id number], [place] [address] Nov, [facility] [address] [facility] [id number], [place] [address] Mar, IMMUNIZATIONS No Known Immunizations SOCIAL HISTORY Never Assessed REASON FOR VISIT Diarrhea and nausea since late last noc. denies any vomiting. [email or web address] PLAN OF CARE Activity Details Follow Up prn Reason: VITAL SIGNS Height 69 in 2016-11-16 Weight 271.8 lbs 2016-11-16 Temperature 98.9 degrees Fahrenheit 2016-11-16 Heart Rate 84 bpm 2016-11-16 Respiratory Rate 20 2016-11-16 BMI 40.13 kg/m2 2016-11-16 Blood pressure systolic 118 mmHg 2016-11-16 Blood pressure diastolic 74 mmHg 2016-11-16 MEDICATIONS Unknown Medications RESULTS No Results PROCEDURES No Known procedures INSTRUCTIONS MEDICATIONS ADMINISTERED No Known Medications MEDICAL (GENERAL) HISTORY Type Description Date Medical History degenerative disc disease Medical History spondolysis Medical History history of herniated discs
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
== END 2017-09-03 11:33 | disposition left against medical advice (07) ==
LOC: EDUNIT# 11:19 → ER 11:21
DX: M54.2 Cervicalgia (principal); V49.9XXA Car occupant (driver) (passenger) injured in unspecified traffic accident, initial encounter

== ENCOUNTER → 2019-01-10 | Outpatient (CLI) | payer MEDICAID ==
[~2019-01-10] MED LIST changes: -OXYC-197 PO; +OXYC1TAB87 PO
--- NOTE | 2019-01-10 16:30 | Diagnostic Imaging Report ---
PROCEDURE: MRI left joint lower extremity without contrast. TECHNIQUE: Multiplanar, multisequence non contrast-enhanced MRI of the left lower extremity was accomplished. INDICATION: Knee pain. FINDINGS: The previous MRI left knee exam of 01/23/2015 indicated an acute partial tear of the attachment of the infrapatellar tendon to the tibial tuberosity. 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 Those findings are again evident on this study and do not seem to have changed. There is still no evidence for a full-thickness tear of the infrapatellar tendon, and the tendon is not retracted. There is greater edema/inflammation of the soft tissues along the anterior aspect of the proximal tibia, however. The previous study failed to show any sign of an injury to the major ligaments or tendons or to the menisci. On the proton dense sagittal series of this exam, there is a vague area of increased signal within the substance of the posterior horn of the medial meniscus. This finding was present on the prior exam and has not changed. I suspect that this is due to degenerative disease as opposed to a tear. The lateral meniscus is intact. The anterior and posterior cruciate ligaments, the quadriceps tendon, the collateral ligaments, the biceps femoris tendon, and the iliotibial band are unremarkable for an acute abnormality. There is no sign of a tear of either medial or lateral retinaculum. There is mild degenerative disease of the medial and lateral compartments of the knee joint, and there is moderate narrowing of the lateral aspect of the patellofemoral space. These findings are similar to the prior exam. There is no sign of an acute bony abnormality. There is a small joint effusion present. There is no evidence for a Nelson's cyst. IMPRESSION: 1. The post-traumatic changes involving the attachment of the infrapatellar tendon to the tibial tuberosity seen on the prior study are again evident and do not appear to have changed significantly. There is still no evidence for a full-thickness tear of the tendon. There does appear to be greater edema/inflammation of the soft tissues in this area, however. 2. There is still no evidence for a tear of either meniscus. The major ligaments and tendons appear to be intact. 3. There is no sign of an acute bony abnormality. 4. The mild degenerative changes involving the knee joint seen on the prior exam have not progressed. Dictated by: Dictated on workstation # [id number]
== END ==
LOC: RAD 14:18
PROVIDERS: ATTEND Family Medicine
DX: M25.462 Effusion, left knee (principal); M17.12 Unilateral primary osteoarthritis, left knee
CPT/HCPCS: 73721

== ENCOUNTER → 2019-04-27 | Outpatient (CLI) | payer MEDICAID ==
--- NOTE | 2019-04-27 14:36 | Diagnostic Imaging Report ---
PROCEDURE: US Scrotum. TECHNIQUE: Multiple real-time grayscale images were obtained over the scrotum in various projections bilaterally. INDICATION: Testicular pain right greater than left. FINDINGS: Right testicle measures 5 x 3 x 3.4 cm. Left testicle measures 5.1 x 3.1 x 3.3 cm. Both testicles demonstrate homogeneous echogenicity and normal blood flow. Epididymides are unremarkable. There are bilateral hydroceles. IMPRESSION: Bilateral hydroceles, otherwise unremarkable. Dictated by: Dictated on workstation # [id number]
== END ==
LOC: RAD 12:49
PROVIDERS: ATTEND Nurse Practitioner Family
DX: N43.3 Hydrocele, unspecified (principal)
CPT/HCPCS: 76870